=== PATIENT | female | born 1935 | race Caucasian/White ===

== ENCOUNTER 2021-08-25 05:45 | Inpatient (IN) ==
[2021-08-25 07:23] LABS: PT Patient Result 11.5 SECS (10.5-12.0); Partial Thromboplastin Time 25.1 SECS (23.8-32.1)
[2021-08-25] MEDS ORDERED: ACETAMINOPHEN 500 MG TABLET PO ONE (07:54)
[2021-08-25] MEDS ORDERED: FAMOTIDINE 20 MG TABLET PO ONE (07:54)
[2021-08-25] MEDS ORDERED: GABAPENTIN 400 MG CAPSULE PO ONE (07:54)
[2021-08-25] MEDS ORDERED: DIAZEPAM 5 MG TABLET PO ONE (07:54)
[2021-08-25] MEDS ORDERED: VANCOMYCIN INJ 1,000 MG in SODIUM CHLORIDE 0.9% 250 ML IV ONE (07:56)
[2021-08-25] MEDS ORDERED: LACTATED RINGERS 1,000 ML IV SCH (08:00)
[2021-08-25] MEDS ORDERED: DEXAMETHASONE 4 MG/1 ML VIAL ONE (09:59)
[2021-08-25] MEDS ORDERED: ROPIVACAINE 0.5% 30 ML VIAL ONE (09:59)
[2021-08-25] MEDS ORDERED: LIDOCAINE 1% 5 ML VIAL ONE (09:59)
[2021-08-25] MEDS ORDERED: DEXMEDETOMIDINE 200 MCG/2 ML VIAL ONE (10:00)
[2021-08-25] MEDS ORDERED: BACITRACIN OINT 0.9 GM PACK TOP ONE (10:04)
[2021-08-25] MEDS ORDERED: MORPHINE 2 MG/1 ML SYRINGE IV PRN ×2 (10:09)
[2021-08-25] MEDS ORDERED: diphenhydrAMINE CAP 25 MG CAPSULE PO PRN (10:09)
[2021-08-25] MEDS ORDERED: MAGNESIUM HYDROXIDE SUSP 30 ML UDCUP PO PRN (10:09)
[2021-08-25] MEDS ORDERED: ONDANSETRON 4 MG/2 ML VIAL IV PRN (10:09)
[2021-08-25] MEDS ORDERED: MIDAZOLAM 2 MG/2 ML VIAL ONE (10:30)
[2021-08-25] MEDS ORDERED: PHENYLEPHRINE 10 MG/1 ML VIAL IV ONE (10:46)
[2021-08-25] MEDS ORDERED: SODIUM CHLORIDE 0.9% 100 ML IV ONE (11:17)
[2021-08-25] MEDS ORDERED: TRANEXAMIC ACID 1,000 MG/10 ML VIAL ONE (11:29)
[2021-08-25] MEDS ORDERED: BUPIVACAINE SPINAL 0.75% 2 ML AMP SPINAL ONE (12:01)
[2021-08-25] MEDS ORDERED: LACTATED RINGERS 1,000 ML IV ONE (12:29)
[2021-08-25 13:16] LABS: Bilirubin,Urine Negative (Negative); Blood, Urine Negative (Negative); Glucose,Urine (UA) Negative (Negative); Ketones,Urine Negative (Negative); Nitrite,Urine Negative (Negative); Protein,Urine Negative; RBC,Urine 2 /HPF (0-4); Squamous Epithelial Cell,Urine Occasional /HPF (0-10); Urine Appearance CLEAR (Clear); Urine Color Yellow (Yellow); Urine Urobilinogen < 2.0 EU/DL (<2.0)
[2021-08-25] MEDS: LACTATED RINGERS 1,000 ML IV SCH (16:07)
[2021-08-25] MEDS: KETOROLAC 15 MG/1 ML VIAL IV SCH ×3 (16:08→21:38)
[2021-08-25] MEDS: CIPROFLOXACIN 500 MG TABLET PO SCH (16:19)
[2021-08-25] MEDS: DOCUSATE SODIUM 100 MG CAPSULE PO SCH (21:38)
[2021-08-25] MEDS: ZALEPLON 5 MG CAPSULE PO PRN (21:38)
[2021-08-26] MEDS: LACTATED RINGERS 1,000 ML IV SCH (02:10)
[2021-08-26] MEDS: KETOROLAC 15 MG/1 ML VIAL IV SCH (05:31)
[2021-08-26] MEDS: FONDAPARINUX 2.5 MG/0.5 ML SYRINGE SUBCUT SCH (05:40)
[2021-08-26] MEDS: LEVOTHYROXINE 100 MCG TABLET PO SCH (05:57)
[2021-08-26 06:11] LABS: Basophils % 0.1 % (0.0-0.8); Hematocrit 30.2 VOL% (35.7-47.0); Hemoglobin 9.7 GM/DL (12.0-16.0); Immature Granulocytes % 0.4 %; Immature Granulocytes Absolute 0.06 #; Lymphocytes # 1.1 10*3/uL (1.4-4.0); Lymphocytes % 7.7 % (21.3-54.2); Mean Corpuscular HGB Conc 32.1 GM/DL (32-36); Mean Platelet Volume 10.3 FL (9.6-12.0); Monocytes % 8.6 % (1.7-12.7); Neutrophils % 83.2 % (38.7-73.9); Platelet Count 215 T/CUMM (130-400); Red Blood Count 2.99 MC/CUMM (3.8-5.5); White Blood Count 13.6 T/CUMM (4-12)
[2021-08-26 06:31] LABS: Calcium 8.5 MG/DL (8.5-10.1); Osmolality,Calculated 275.8 MOS/KG (273-304); Potassium 3.7 MMOL/L (3.5-5.1)
[2021-08-26] MEDS: CYANOCOBALAMIN 500 MCG TABLET PO SCH (09:41)
[2021-08-26] MEDS: METOPROLOL TARTRATE 50 MG TABLET PO SCH (09:41)
[2021-08-26] MEDS: MULTIVITAMIN (OCUVITE) TABLET PO SCH (09:41)
[2021-08-26] MEDS: hydroCHLOROthiazide 25 MG TABLET PO SCH (09:41)
[2021-08-26] MEDS: CIPROFLOXACIN 500 MG TABLET PO SCH ×2 (09:41→19:26)
[2021-08-26] MEDS: OMEGA 3 ACID ETHYL ESTERS 1 GM CAPSULE PO SCH (09:41)
[2021-08-26] MEDS: CALCIUM (CARBONATE) 500 MG TABLET PO SCH (09:41)
[2021-08-26] MEDS: DOCUSATE SODIUM 100 MG CAPSULE PO SCH ×3 (09:41→23:48)
[2021-08-26] MEDS: CHOLECALCIFEROL 1,000 UNIT TABLET PO SCH (09:41)
[2021-08-27 05:35] LABS: Mean Corpuscular Volume 100.4 FL (87-102)
[2021-08-27 05:40] LABS: Basophils % 0.3 % (0.0-0.8); Eosinophils % 0.3 % (0.00-10.9); Hematocrit 26.5 VOL% (35.7-47.0); Hemoglobin 8.5 GM/DL (12.0-16.0); Immature Granulocytes % 0.5 %; Immature Granulocytes Absolute 0.06 #; Lymphocytes # 1.7 10*3/uL (1.4-4.0); Lymphocytes % 12.9 % (21.3-54.2); Mean Corpuscular HGB Conc 32.1 GM/DL (32-36); Mean Platelet Volume 10.4 FL (9.6-12.0); Monocytes % 8.9 % (1.7-12.7); Neutrophils % 77.1 % (38.7-73.9); Platelet Count 178 T/CUMM (130-400); Red Blood Count 2.64 MC/CUMM (3.8-5.5); Red Cell Distribution Width 13.2 % (9.3-17.3); White Blood Count 12.8 T/CUMM (4-12)
[2021-08-27] MEDS: FONDAPARINUX 2.5 MG/0.5 ML SYRINGE SUBCUT SCH (06:09)
[2021-08-27] MEDS: LEVOTHYROXINE 100 MCG TABLET PO SCH (07:55)
[2021-08-27] MEDS: LACTATED RINGERS 1,000 ML IV SCH (07:55)
[2021-08-27] MEDS: CIPROFLOXACIN 500 MG TABLET PO SCH (08:38)
[2021-08-27] MEDS: OMEGA 3 ACID ETHYL ESTERS 1 GM CAPSULE PO SCH (08:38)
[2021-08-27] MEDS: DOCUSATE SODIUM 100 MG CAPSULE PO SCH ×2 (08:38→21:28)
[2021-08-27] MEDS: CYANOCOBALAMIN 500 MCG TABLET PO SCH (08:38)
[2021-08-27] MEDS: CHOLECALCIFEROL 1,000 UNIT TABLET PO SCH (08:38)
[2021-08-27] MEDS: CALCIUM (CARBONATE) 500 MG TABLET PO SCH (08:38)
[2021-08-27] MEDS: hydroCHLOROthiazide 25 MG TABLET PO SCH (08:38)
[2021-08-27] MEDS: MULTIVITAMIN (OCUVITE) TABLET PO SCH (08:38)
[2021-08-27] MEDS: METOPROLOL TARTRATE 50 MG TABLET PO SCH (08:39)
[2021-08-27] MEDS: ZALEPLON 5 MG CAPSULE PO PRN (21:28)
[2021-08-28 05:07] LABS: Basophils % 0.4 % (0.0-0.8); Eosinophils # 0.3 10*3/uL (0.0-0.87); Eosinophils % 2.6 % (0.00-10.9); Hematocrit 24.5 VOL% (35.7-47.0); Immature Granulocytes % 0.5 %; Immature Granulocytes Absolute 0.05 #; Lymphocytes # 1.6 10*3/uL (1.4-4.0); Lymphocytes % 16.9 % (21.3-54.2); Mean Corpuscular HGB Conc 32.7 GM/DL (32-36); Mean Corpuscular Volume 98.4 FL (87-102); Mean Platelet Volume 10.2 FL (9.6-12.0); Monocytes % 8.9 % (1.7-12.7); Neutrophils % 70.7 % (38.7-73.9); Platelet Count 174 T/CUMM (130-400); Red Blood Count 2.49 MC/CUMM (3.8-5.5); Red Cell Distribution Width 12.9 % (9.3-17.3); White Blood Count 9.6 T/CUMM (4-12)
[2021-08-28] MEDS: FONDAPARINUX 2.5 MG/0.5 ML SYRINGE SUBCUT SCH (05:22)
[2021-08-28] MEDS: LEVOTHYROXINE 100 MCG TABLET PO SCH (05:30)
[2021-08-28] MEDS: CYANOCOBALAMIN 500 MCG TABLET PO SCH (09:09)
[2021-08-28] MEDS: MULTIVITAMIN (OCUVITE) TABLET PO SCH (09:10)
[2021-08-28] MEDS: OMEGA 3 ACID ETHYL ESTERS 1 GM CAPSULE PO SCH (09:10)
[2021-08-28] MEDS: CHOLECALCIFEROL 1,000 UNIT TABLET PO SCH (09:10)
[2021-08-28] MEDS: DOCUSATE SODIUM 100 MG CAPSULE PO SCH (09:10)
[2021-08-28] MEDS: CALCIUM (CARBONATE) 500 MG TABLET PO SCH (09:10)
[2021-08-28] MEDS: METOPROLOL TARTRATE 50 MG TABLET PO SCH (09:10)
[2021-08-28] MEDS: hydroCHLOROthiazide 25 MG TABLET PO SCH (09:10)
[2021-08-28 11:32] VITALS: BP 117/66
== END 2021-08-28 13:11 | DRG 468 ==
LOC: N.OR 05:45 → N.SDSINP 05:47 → N.3E 11:16
PROVIDERS: ADMIT Orthopaedic Surgery; ATTEND Orthopaedic Surgery